=== PATIENT | female | born 1945 | race Caucasian/White ===

== ENCOUNTER → 2017-01-12 | Day surgery (SDC) | payer MEDICARE, OTHER ==
[~2017-01-12] MED LIST: ADVAIR 2501 DISK W/D PO; ALBUTEROL17 GM; ALLERGY RELIEF10 M1 PO; ASTELIN NASAL SPRAY; BENZONATATE PO; BUSPAR PO; CALCIUM 600 + D1 TAB PO; COLACE PO; DULOXETINE HCL60 MG PO; FIBERCON625 MG PO; FISH OIL; FLONASE16 GM; IRON; JANUVIA50 MG PO; LISINOPRIL; LORTAB 7.5-5001 TAB PO; LOVASTATIN20 MG PO; MONTELUKAST SOD10 MG PO; MULTIVITAMIN1 UDCAP PO; NAPROXEN; NORVASC; PAXIL; PRAVACHOL; PRILOSEC; PROVENTIL17 GM IH; SPIRIVA18 MCG; SYNTHROID; ULTRAM; VITAMIN C500 MG PO; VITAMIN E; ZANTAC150 M1 PO; ZESTORETIC 20/21 TAB PO; ZITHROMAX1 G/PKT PO
--- NOTE | ~2017-01-12 | OR ---
Unit #: [id number] #: [id number] Patient: ERASMO BLACKWOOD [id number] [address] [place], [place] [address] [id number] O MR#: [id number] NAME: ERASMO BLACKWOOD. ROOM: Date of Procedure: 01/12/2017 Admission Date: 01/12/2017 Surgeon: Michael Goodman M.D. : 1945 Attending Physician: Michael Goodman M.D. Primary Care Physician: Belinda Carroll M.D. OPERATIVE REPORT INDICATIONS FOR PROCEDURE Esophagogastroduodenoscopy with biopsy and colonoscopy to cecum. INDICATIONS FOR PROCEDURE The patient with significant dysphagia, dyspepsia, bloating after eating, history of colon polyps, undergoing evaluation with upper endoscopy and colonoscopy. MEDICATIONS Monitored anesthesia. POSTOPERATIVE FINDINGS 1. Normal esophagus. 2. Mild gastritis. Biopsies taken. 3. Normal duodenum and distal duodenum. 4. Colonoscopy completed to cecum with good prep. No polyps, masses, or colitis was seen. 5. Small internal hemorrhoids. PLAN Follow up on the pathology report. We will plan on getting a gastric emptying scan for further evaluation. DESCRIPTION OF PROCEDURE The patient was explained of the procedure, risks, and benefits along with risks and benefits of anesthesia. She was brought to the endoscopy room. Propofol anesthesia was given. Bite block was placed. The scope was passed down the mouth into the esophagus, stomach, duodenum, and distal duodenum. Findings as described. Biopsies taken. Gently, I pulled it out the patient's mouth. She tolerated it well. At this time, she was turned around and repositioned for colonoscopy. Rectal exam was done, which was normal. Colonoscope was lubricated, passed up the rectum, advanced under direct vision all the way to the cecum. Cecum was identified by ileocecal valve and appendiceal orifice. I then started to pull the scope out carefully looking. No polyps, masses, or colitis was seen. I retroflexed in the rectum, small hemorrhoids seen. Scope was gently pulled out. She tolerated it well. No major complications were seen. Dictated by... Unit #: [id number] #: [id number] Patient: ERASMO BLACKWOOD Craig Duenas/alf TD: 01/12/2017 22:36 JOB #: [id number] CC: . OPERATIVE REPORT X Michael Goodman MD PROCEDURE OPERATIVE NOTE
== END | disposition home or self-care (01) ==
LOC: COPS 07:30
DX: Z12.11 Encounter for screening for malignant neoplasm of colon (principal); K29.50 Unspecified chronic gastritis without bleeding; K29.70 Gastritis, unspecified, without bleeding; K64.8 Other hemorrhoids; E11.22 Type 2 diabetes mellitus with diabetic chronic kidney disease; I12.9 Hypertensive chronic kidney disease with stage 1 through stage 4 chronic kidney disease, or unspecified chronic kidney disease; N18.2 Chronic kidney disease, stage 2 (mild); J43.9 Emphysema, unspecified; E78.5 Hyperlipidemia, unspecified; E03.9 Hypothyroidism, unspecified; Z87.891 Personal history of nicotine dependence; Z88.1 Allergy status to other antibiotic agents; Z88.8 Allergy status to other drugs, medicaments and biological substances; Z79.84 Long term (current) use of oral hypoglycemic drugs; Z79.899 Other long term (current) drug therapy; Z90.89 Acquired absence of other organs; Z96.651 Presence of right artificial knee joint; Z98.41 Cataract extraction status, right eye; Z98.51 Tubal ligation status; Z98.890 Other specified postprocedural states
CPT/HCPCS: 43239; G0105; 82947; 88305; 88312

== ENCOUNTER → 2017-01-24 | Outpatient (CLI) | payer MEDICARE, OTHER ==
--- NOTE | ~2017-01-24 | NM19 ---
[facility] A Service of [facility] & [facility] RADIOLOGY TEXT RESULTS PATIENT: ERASMO BLACKWOOD LOCATION: [facility] : 45 UNIT #: [id number] AGE: [address]: Michael Goodman MD SEX: F ORDER DR: [id number] [facility] [address] [place], [place] [address] [id number] O MR#: [id number] Acc #: [id number] NAME: ERASMO BLACKWOOD. : 1945 SEX: F STUDY DATE/TIME: 01/24/2017 7:39 UNIT: [facility] ROOM: STUDY DESCRIPTION: NM Gastric Emptying Study Attending Physician: Michael Goodman M.D. Referring Physician: Michael Goodman M.D. Ordering Physician: Michael Goodman M.D. Primary Care Physician: Belinda Carroll M.D. MEDICAL IMAGING REPORT This report is preliminary unless electronic signature is present EXAM Gastric emptying scan 01/24/2017 HISTORY Dyspepsia, abdominal bloating. Constipation and diarrhea, generalized abdominal pain for 6 months. FINDINGS The patient ingested 521 microcuries of technetium 99m tagged sulfur colloid in eggs. Images of the upper abdomen were obtained for 4 hours. After 1 hour the stomach was 37% empty and after 2 hours the stomach was 49% empty and after 4 hours the stomach was 70% empty. Normal range is greater than 60% empty after 2 hours of imaging and greater than 90% empty after 4 hours of imaging. IMPRESSION Delayed gastric emptying after 2 and 4 hours of imaging. Dictated by... Danie Wilcox M.D. THIS IS AN ELECTRONICALLY VERIFIED REPORT Danie Wilcox M.D. at 01/24/2017 5:03 PM Margaux TD: 01/24/2017 16:05 JOB #: [id number] MEDICAL IMAGING REPORT COPY
== END | disposition home or self-care (01) ==
LOC: CNUC 06:57
DX: R10.13 Epigastric pain (principal); K30 Functional dyspepsia
CPT/HCPCS: 78264; A9541

== ENCOUNTER → 2017-01-26 | Outpatient (CLI) | payer MEDICARE, OTHER ==
--- NOTE | ~2017-01-26 | BD1 ---
[facility] A Service of [facility] & [facility] RADIOLOGY TEXT RESULTS PATIENT: ERASMO BLACKWOOD LOCATION: [facility] : 45 UNIT #: [id number] AGE: [address]: Jarred Valenzuela MD SEX: F ORDER DR: [id number] [facility] [address] [place], [place] [address] [id number] O MR#: [id number] Acc #: [id number] NAME: ERASMO BLACKWOOD. : 1945 SEX: F STUDY DATE/TIME: 01/26/2017 12:03 UNIT: [facility] ROOM: STUDY DESCRIPTION: BD Dexa Bone Dens 1+ Site Attending Physician: Jarred Valenzuela M.D. Ordering Physician: Jarred Valenzuela M.D. Primary Care Physician: Belinda Carroll M.D. MEDICAL IMAGING REPORT This report is preliminary unless electronic signature is present EXAM DXA scan 01/26/2017 HISTORY Status post menopause with no hormone replacement therapy. Osteopenia. Kidney disease. Arthritis and diabetes. Thyroid medication levothyroxine use for 12 years. Hypertension with blood pressure medication. Smoking history for 20 years. FINDINGS Bone mineral density in the lumbar spine from L1-L4 was 1.117 g/cm2 which is 0.6 standard deviations above the mean when compared to the young adult reference population which is within the range of normal. This is 2.8 standard deviations above the mean when compared to the age-matched population. Bone mineral density in the left femoral neck was 0.729 g/cm2 which is 1.1 standard deviations below the mean when compared to the young adult reference population which is characteristic of osteopenia. This is 0.8 standard deviations above the mean when compared to the age-matched population. Compared with 10/24/2012 there has been an increase in bone mineral density in the left hip of 1.1%. IMPRESSION Bone mineral density in the lumbar spine within the range of normal and within the left hip characteristic of osteopenia. Compared with 10/24/2012 there has been an increase in bone mineral density in the left hip. Dictated by... Danie Wilcox M.D. THIS IS AN ELECTRONICALLY VERIFIED REPORT Danie Wilcox M.D. at 01/26/2017 5:49 PM KRT/jf [facility]. [facility] A Service of [facility] & [facility] RADIOLOGY TEXT RESULTS PATIENT: ERASMO BLACKWOOD [id number] [birth year] UNIT #: [id number] AGE: [address]: Jarred Valenzuela MD SEX: F ORDER DR: TD: 01/26/2017 15:32 JOB #: [id number] MEDICAL IMAGING REPORT COPY
== END | disposition home or self-care (01) ==
LOC: CWCC 11:40
DX: Z78.0 Asymptomatic menopausal state (principal); M85.88 Other specified disorders of bone density and structure, other site
CPT/HCPCS: 77080